=== PATIENT | female | born 1995 | race Caucasian/White ===

== ENCOUNTER 2019-02-14 15:13 | Emergency (ER) | payer OTHER, SELFPAY ==
[2019-02-14 16:07] LABS: #Eosinphils 0.1 thou/uL (0.0-0.7); #Lymphocytes 2.1 thou/uL (1.20-3.40); #Monocytes 0.5 thou/uL (0.11-0.59); #Neutrophils 7.5 thou/uL (1.40-6.50); %Basophils 0.3 % (0.0-1.0); %Lymphocytes 20.5 % (21.0-51.0); %Monocytes 4.9 % (0.0-10.0); %Neutrophils 73.4 % (42.0-75.0); Hemoglobin 12.1 g/dL (12.0-16.0); Mean Corpuscular HGB CONC 33.8 g/dL (32.0-36.0); Mean Corpuscular Hemoglobin 28.9 pg (27.0-31.0); Mean Corpuscular Volume 85.4 fL (78.0-98.0); Mean Platelet Volume 8.3 fL (7.4-10.4); Platelet Count 180 thou/uL (130-400); RBC Distribution Width 12.7 % (11.5-14.5); Red Blood Cell (RBC) Count 4.18 mill/uL (4.20-5.40); White Blood Cell (WBC) Count 10.2 thou/uL (4.8-10.8)
[2019-02-14 16:28] LABS: ALT (SGPT) 18 U/L (8-55); AST (SGOT) 14 U/L (5-34); Albumin 3.8 g/dL (3.5-5.0); Alkaline Phosphatase 60 U/L (40-150); Anion Gap 11 mmol/L (10-20); BUN (Urea Nitrogen) 11 mg/dL (7.0-18.7); Bilirubin, Total 0.4 mg/dL (0.2-1.2); Calc. Creatinine Clearance 0 mL/min (70-130); Calcium 8.7 mg/dL (7.8-10.44); Carbon Dioxide 24 mmol/L (22-29); Chloride 105 mmol/L (98-107); Estimated GFR-MDRD 85; Globulin 2.5 g/dL (2.4-3.5); Glucose 87 mg/dL (70-105); Magnesium 1.8 mg/dL (1.6-2.6); Potassium 3.7 mmol/L (3.5-5.1); Protein, Total 6.3 g/dL (6.0-8.3); Sodium 136 mmol/L (136-145)
[2019-02-14 16:29] LABS: Acetaminophen Less than 6.0 mcg/mL (10.0-30.0); Alcohol Less than 10 mg/dL (Less than 10); CK (CPK) 79 U/L (29-168); Salicylate Less than 8.0 mg/dL (15.0-30.0)
[2019-02-14] MEDS ORDERED: Sodium Chloride 0.9% 1,000 ML IV SCH (16:45)
[2019-02-14] MEDS ORDERED: levETIRAcetam 500 MG TAB PO SCH (16:45)
[2019-02-14 17:30] LABS: Bilirubin Negative (Negative); Blood, Urine Moderate (Negative); Clarity CLOUDY (Clear); Glucose, Urine (Dipstick) Negative (Negative); Leukocyte Large (Negative); Nitrite Negative (Negative); Protein, Urine (Dipstick) Negative (Neg-Trace)
[2019-02-14 17:33] LABS: Bacteria/HPF Rare-Few HPF (None Seen); Hyaline Casts/LPF 4-6 HYALINE CAST LPF (0-3 Hyaline); Pathc Cast-AUWi Flag 0.68 (0-2.49)
[2019-02-14 17:37] LABS: Pregnancy Test - Urine (BHCG) Negative (Negative)
[2019-02-14 17:38] LABS: Pregu Control Background? CLEAR/WHITE (CLR/WHITE); Pregu Control Bar Appear? YES (CONTROL BAR); Specific Gravity 1.021 (1.002-1.036)
[2019-02-14 17:44] LABS: Amphetamine Not Detected (NotDetected); Barbiturates Screen Not Detected (NotDetected); Benzodiazepine Screen Not Detected (NotDetected); Cocaine Metabolite Screen Not Detected (NotDetected); Medtox Control Line Valid? VALID (VALID); Medtox Reader # READER 1; Methadone Not Detected (NotDetected); Methamphetamine Not Detected (NotDetected); Opiate Screen Not Detected (NotDetected); Oxycodone Screen Not Detected (NotDetected); Phencyclidine (PCP) Not Detected (NotDetected); THC/Cannabinoid Screen Not Detected (NotDetected); Tricyclic Screen Not Detected (NotDetected)
[2019-02-14 17:52] LABS: RBC/HPF 0-3 HPF (0-3)
== END 2019-02-14 18:15 | disposition home or self-care (01) ==
LOC: ERS 15:13
DX: R56.9 Unspecified convulsions (principal); N39.0 Urinary tract infection, site not specified; E03.9 Hypothyroidism, unspecified; I10 Essential (primary) hypertension; F90.9 Attention-deficit hyperactivity disorder, unspecified type; F32.9 Major depressive disorder, single episode, unspecified; F17.210 Nicotine dependence, cigarettes, uncomplicated; E66.01 Morbid (severe) obesity due to excess calories; Z86.73 Personal history of transient ischemic attack (TIA), and cerebral infarction without residual deficits; Z79.899 Other long term (current) drug therapy
CPT/HCPCS: 36415; 80053; 80306; 80307; 81003; 81015; 81025; 82550; 83735; 85025; 96360

== ENCOUNTER 2020-12-06 17:19 | Emergency (ER) | payer MEDICAID, MEDICARE ==
[2020-12-06] MEDS ORDERED: levETIRAcetam 500 MG TAB PO SCH (18:00)
[2020-12-06] MEDS ORDERED: Insulin Regular 300 UNITS/3 ML VIAL ONE (18:07)
[2020-12-06 18:38] LABS: BHCG - Serum Negative (NEGATIVE)
[2020-12-06 18:39] LABS: Pregs Control Background? CLEAR/WHITE (CLR/WHITE); Pregs Control Bar Appear? YES (CONTROL BAR)
== END 2020-12-06 19:11 | disposition home or self-care (01) ==
LOC: ERS 17:19
DX: G40.909 Epilepsy, unspecified, not intractable, without status epilepticus (principal); E03.9 Hypothyroidism, unspecified; I10 Essential (primary) hypertension; F17.210 Nicotine dependence, cigarettes, uncomplicated; E11.9 Type 2 diabetes mellitus without complications; Z79.4 Long term (current) use of insulin
CPT/HCPCS: 36415; 36416; 80177; 84703; 99284; J1815

== ENCOUNTER 2025-06-18 12:01 | Emergency (ER) | payer MEDICAID, MEDICARE ==
[2025-06-18] MEDS ORDERED: Ketorolac Tromethamine 30 MG (1 mL) VIAL ONE (13:54)
[2025-06-18] MEDS ORDERED: diphenhydrAMINE 50 MG/ML VIAL ONE (13:54)
[2025-06-18] MEDS ORDERED: levETIRAcetam 500 MG (5 mL) VIAL ONE (13:55)
[2025-06-18] MEDS ORDERED: Prochlorperazine 10 MG/2 ML VIAL ONE (13:55)
[2025-06-18 14:25] LABS: BHCG - Serum Negative (NEGATIVE); Pregs Control Background? CLEAR/WHITE (CLR/WHITE); Pregs Control Bar Appear? YES (CONTROL BAR)
[2025-06-18 14:30] LABS: ALT (SGPT) 51 U/L (Less than 34); AST (SGOT) 46 U/L (11-34); Albumin 3.6 g/dL (3.1-4.5); Alkaline Phosphatase 59 U/L (40-110); Anion Gap 14 mmol/L (10-20); BUN (Urea Nitrogen) 8 mg/dL (7.0-18.7); Bilirubin, Total 0.3 mg/dL (0.3-1.2); Calc. Creatinine Clearance 0 mL/min (70-130); Calcium 8.6 mg/dL (7.8-10.44); Carbon Dioxide 19 mmol/L (22-29); Chloride 106 mmol/L (98-107); Globulin 2.8 g/dL (2.4-3.5); Glucose 252 mg/dL (70-105); Potassium 4.5 mmol/L (3.5-5.1); Sodium 134 mmol/L (136-145)
[2025-06-18 14:51] LABS: #Basophils 0.05 10x3/uL (0.0-0.2); #Eosinophils 0.21 10x3/uL (0.0-0.7); #Monocytes 0.41 10x3/uL (0.11-0.59); #Neutrophils 4.98 10x3/uL (1.40-6.50); %Basophils 0.6 % (0.0-1.0); %Eosinophils 2.4 % (0.0-10.0); %Lymphocytes 33.9 % (21.0-51.0); %Monocytes 4.7 % (0.0-10.0); %Neutrophils 57.1 % (42.0-75.0); Hematocrit 36.8 % (36.0-47.0); Hemoglobin 11.8 g/dL (12.0-16.0); Mean Corpuscular Hemoglobin 27.8 pg (27.0-31.0); Mean Corpuscular Volume 86.8 fL (78.0-98.0); Platelet Count 179 10x3/uL (130-400); Red Blood Cell (RBC) Count 4.24 mill/uL (4.20-5.40); White Blood Cell (WBC) Count 8.71 10x3/uL (4.8-10.8)
== END 2025-06-18 17:58 | disposition home or self-care (01) ==
LOC: ERS 12:01
DX: R56.9 Unspecified convulsions (principal); G43.909 Migraine, unspecified, not intractable, without status migrainosus; E66.01 Morbid (severe) obesity due to excess calories; I10 Essential (primary) hypertension; F90.9 Attention-deficit hyperactivity disorder, unspecified type; F17.210 Nicotine dependence, cigarettes, uncomplicated; Z86.73 Personal history of transient ischemic attack (TIA), and cerebral infarction without residual deficits
CPT/HCPCS: 71045; 80053; 84703; 85025; 94760; 96365; 96375; 99284; J0780; J1200; J1885; J1953; 36415

== ENCOUNTER 2025-07-03 14:54 | Emergency (ER) | payer MEDICARE ==
[2025-07-03] MEDS ORDERED: HYDROcodone/Acetaminophen 5/325 mg Tablet ONE (16:34)
== END 2025-07-03 16:50 | disposition home or self-care (01) ==
LOC: ERS 14:54
DX: M25.562 Pain in left knee (principal); I10 Essential (primary) hypertension; F17.210 Nicotine dependence, cigarettes, uncomplicated
CPT/HCPCS: 99283

== ENCOUNTER 2025-07-06 06:04 | Emergency (ER) | payer MEDICARE, SELFPAY ==
[2025-07-06 06:28] LABS: #Basophils 0.04 10x3/uL (0.0-0.2); #Eosinophils 0.17 10x3/uL (0.0-0.7); #Monocytes 0.46 10x3/uL (0.11-0.59); #Neutrophils 6.74 10x3/uL (1.40-6.50); %Basophils 0.4 % (0.0-1.0); %Eosinophils 1.7 % (0.0-10.0); %Lymphocytes 25.2 % (21.0-51.0); %Monocytes 4.6 % (0.0-10.0); %Neutrophils 67.6 % (42.0-75.0); Hematocrit 38.6 % (36.0-47.0); Hemoglobin 12.9 g/dL (12.0-16.0); Mean Corpuscular Hemoglobin 27.7 pg (27.0-31.0); Mean Corpuscular Volume 82.8 fL (78.0-98.0); Platelet Count 177 10x3/uL (130-400); Red Blood Cell (RBC) Count 4.66 mill/uL (4.20-5.40); White Blood Cell (WBC) Count 9.97 10x3/uL (4.8-10.8)
[2025-07-06 06:38] LABS: BHCG - Serum Negative (NEGATIVE); Pregs Control Background? CLEAR/WHITE (CLR/WHITE); Pregs Control Bar Appear? YES (CONTROL BAR)
[2025-07-06] MEDS ORDERED: Acetaminophen 500 MG TAB ONE (06:42)
[2025-07-06] MEDS ORDERED: Tranexamic Acid 1,000 MG/10 ML VIAL ONE (06:43)
[2025-07-06] MEDS ORDERED: Ondansetron PF 4 MG/2 ML Vial ONE ×2 (06:43→07:39)
[2025-07-06 06:45] LABS: ALT (SGPT) 40 U/L (Less than 34); AST (SGOT) 21 U/L (11-34); Albumin 3.9 g/dL (3.1-4.5); Alkaline Phosphatase 72 U/L (40-110); Anion Gap 12 mmol/L (10-20); BUN (Urea Nitrogen) 15 mg/dL (7.0-18.7); Bilirubin, Total 0.4 mg/dL (0.3-1.2); Calc. Creatinine Clearance 0 mL/min (70-130); Calcium 8.6 mg/dL (7.8-10.44); Carbon Dioxide 22 mmol/L (22-29); Chloride 104 mmol/L (98-107); Globulin 2.8 g/dL (2.4-3.5); Glucose 386 mg/dL (70-105); Lipase 57 U/L (8-78); Potassium 3.8 mmol/L (3.5-5.1); Sodium 134 mmol/L (136-145)
[2025-07-06 08:56] LABS: Bacteria/HPF None Seen HPF (None Seen); CAUTI Indications for Culture Pelvic or flank pain; Glucose, Urine (Dipstick) Greater than 1000 mg/dL (Negative); Leukocyte Negative Leu/uL (Negative); Protein, Urine (Dipstick) 20 mg/dL (Neg-Trace); RBC/HPF Greater than 50 HPF (0-3); Specific Gravity, Urine 1.046 (1.002-1.036); WBC/HPF None Seen HPF (0-3)
[2025-07-06 08:58] LABS: Urine Culture Reflex No No
[2025-07-06 09:59] LABS: Hematocrit 35.2 % (36.0-47.0); Hemoglobin 11.9 g/dL (12.0-16.0)
[2025-07-06] MEDS ORDERED: cefTRIAXone (ROCEPHIN) 500 MG VIAL ONE (10:25)
[2025-07-06] MEDS ORDERED: metroNIDAZOLE 500 MG TAB ONE (10:25)
[2025-07-06 13:11] LABS: Chlam.trachomatis by PCR,Urine Not Detected (NotDetected); GC N.gonorrhoeae PCR,UrineVOID Not Detected (NotDetected)
== END 2025-07-06 11:03 | disposition home or self-care (01) ==
LOC: ERS 06:04
DX: N93.9 Abnormal uterine and vaginal bleeding, unspecified (principal); I10 Essential (primary) hypertension; E11.9 Type 2 diabetes mellitus without complications; E66.01 Morbid (severe) obesity due to excess calories; F17.210 Nicotine dependence, cigarettes, uncomplicated; Z86.73 Personal history of transient ischemic attack (TIA), and cerebral infarction without residual deficits; Z68.41 Body mass index [BMI] 40.0-44.9, adult
CPT/HCPCS: 36416; 76856; 80053; 81001; 83690; 84703; 85025; 86850; 86900; 86901; 87480; 87491; 87510; 87591; 87660; 96365; 96367; 96375; 96376; J0696; J2270; J2405

== ENCOUNTER 2025-07-15 14:36 | Emergency (ER) | payer MEDICARE, SELFPAY ==
[2025-07-15 15:04] LABS: #Basophils 0.05 10x3/uL (0.0-0.2); #Eosinophils 0.16 10x3/uL (0.0-0.7); #Monocytes 0.52 10x3/uL (0.11-0.59); #Neutrophils 6.25 10x3/uL (1.40-6.50); %Basophils 0.5 % (0.0-1.0); %Eosinophils 1.6 % (0.0-10.0); %Lymphocytes 28.2 % (21.0-51.0); %Monocytes 5.3 % (0.0-10.0); %Neutrophils 63.8 % (42.0-75.0); Hematocrit 38.7 % (36.0-47.0); Hemoglobin 12.6 g/dL (12.0-16.0); Mean Corpuscular Hemoglobin 27.2 pg (27.0-31.0); Mean Corpuscular Volume 83.6 fL (78.0-98.0); Platelet Count 170 10x3/uL (130-400); Red Blood Cell (RBC) Count 4.63 mill/uL (4.20-5.40); White Blood Cell (WBC) Count 9.80 10x3/uL (4.8-10.8)
[2025-07-15 15:21] LABS: BHCG - Serum Negative (NEGATIVE); Pregs Control Background? CLEAR/WHITE (CLR/WHITE); Pregs Control Bar Appear? YES (CONTROL BAR)
[2025-07-15] MEDS ORDERED: levETIRAcetam 500 MG (5 mL) VIAL ONE (15:24)
[2025-07-15 15:32] LABS: ALT (SGPT) 47 U/L (Less than 34); AST (SGOT) 40 U/L (11-34); Albumin 3.8 g/dL (3.1-4.5); Alkaline Phosphatase 70 U/L (40-110); Anion Gap 14 mmol/L (10-20); BUN (Urea Nitrogen) 20 mg/dL (7.0-18.7); Bilirubin, Total 0.4 mg/dL (0.3-1.2); Calc. Creatinine Clearance 0 mL/min (70-130); Calcium 8.8 mg/dL (7.8-10.44); Carbon Dioxide 22 mmol/L (22-29); Chloride 101 mmol/L (98-107); Globulin 2.9 g/dL (2.4-3.5); Glucose 373 mg/dL (70-105); Potassium 4.1 mmol/L (3.5-5.1); Sodium 133 mmol/L (136-145)
[2025-07-15] MEDS ORDERED: Fluconazole 100 MG TAB ONE (16:55)
[2025-07-15 22:36] LABS: Chlamydia by PCR, Vaginal Swab Not Detected (NotDetected); GC by PCR, Vaginal Swab Not Detected (NotDetected)
== END 2025-07-15 17:10 | disposition home or self-care (01) ==
LOC: ERS 14:36
DX: R56.9 Unspecified convulsions (principal); L30.4 Erythema intertrigo; R79.89 Other specified abnormal findings of blood chemistry; E11.9 Type 2 diabetes mellitus without complications; B37.31 Acute candidiasis of vulva and vagina; I10 Essential (primary) hypertension; F17.210 Nicotine dependence, cigarettes, uncomplicated; F17.290 Nicotine dependence, other tobacco product, uncomplicated; Z79.84 Long term (current) use of oral hypoglycemic drugs; Z86.73 Personal history of transient ischemic attack (TIA), and cerebral infarction without residual deficits; Z72.89 Other problems related to lifestyle
CPT/HCPCS: 80053; 84703; 85025; 87480; 87491; 87510; 87591; 87660; 93005; 96365; 99284; J1953

== ENCOUNTER 2025-07-18 05:54 | Emergency (ER) | payer MEDICARE, SELFPAY ==
[2025-07-18] MEDS ORDERED: Acetaminophen 325 MG TAB ONE (06:28)
[2025-07-18 06:35] LABS: #Basophils 0.03 10x3/uL (0.0-0.2); #Eosinophils 0.07 10x3/uL (0.0-0.7); #Monocytes 0.47 10x3/uL (0.11-0.59); #Neutrophils 4.43 10x3/uL (1.40-6.50); %Basophils 0.4 % (0.0-1.0); %Eosinophils 1.0 % (0.0-10.0); %Lymphocytes 24.0 % (21.0-51.0); %Monocytes 7.0 % (0.0-10.0); %Neutrophils 66.6 % (42.0-75.0); Hematocrit 39.0 % (36.0-47.0); Hemoglobin 13.0 g/dL (12.0-16.0); Mean Corpuscular Hemoglobin 27.2 pg (27.0-31.0); Mean Corpuscular Volume 81.6 fL (78.0-98.0); Platelet Count 161 10x3/uL (130-400); Red Blood Cell (RBC) Count 4.78 mill/uL (4.20-5.40); White Blood Cell (WBC) Count 6.67 10x3/uL (4.8-10.8)
[2025-07-18] MEDS ORDERED: levETIRAcetam 500 MG (5 mL) VIAL ONE (06:37)
[2025-07-18 06:56] LABS: ALT (SGPT) 58 U/L (Less than 34); AST (SGOT) 42 U/L (11-34); Albumin 3.8 g/dL (3.1-4.5); Alkaline Phosphatase 63 U/L (40-110); Anion Gap 13 mmol/L (10-20); BUN (Urea Nitrogen) 13 mg/dL (7.0-18.7); Bilirubin, Total 0.4 mg/dL (0.3-1.2); Calc. Creatinine Clearance 0 mL/min (70-130); Calcium 9.1 mg/dL (7.8-10.44); Carbon Dioxide 21 mmol/L (22-29); Chloride 103 mmol/L (98-107); Globulin 2.9 g/dL (2.4-3.5); Glucose 317 mg/dL (70-105); Potassium 3.9 mmol/L (3.5-5.1); Sodium 133 mmol/L (136-145)
[2025-07-18 08:21] LABS: BHCG - Serum Negative (NEGATIVE); Pregs Control Background? CLEAR/WHITE (CLR/WHITE); Pregs Control Bar Appear? YES (CONTROL BAR)
[2025-07-18 09:41] LABS: CAUTI Indications for Culture Dysuria,urgency,freq; Glucose, Urine (Dipstick) Greater than 1000 mg/dL (Negative); Leukocyte Negative Leu/uL (Negative); Protein, Urine (Dipstick) 20 mg/dL (Neg-Trace); RBC/HPF 0-3 HPF (0-3); WBC/HPF 0-3 HPF (0-3)
[2025-07-18 09:50] LABS: Bacteria/HPF 1+ HPF (None Seen)
[2025-07-18 09:51] LABS: Urine Culture Reflex No No
[2025-07-18] MEDS ORDERED: Vancomycin 1 GM/200 ML (FROZEN) BAG ONE (11:23)
[2025-07-18] MEDS ORDERED: Iopamidol-370 76% 500 ML MDV (1 ML CHARGE) ONE (13:23)
== END 2025-07-18 13:37 | disposition home or self-care (01) ==
LOC: ERS 05:54
DX: J10.00 Influenza due to other identified influenza virus with unspecified type of pneumonia (principal); J18.0 Bronchopneumonia, unspecified organism; I10 Essential (primary) hypertension; E11.9 Type 2 diabetes mellitus without complications; F17.210 Nicotine dependence, cigarettes, uncomplicated; F17.290 Nicotine dependence, other tobacco product, uncomplicated; Z86.73 Personal history of transient ischemic attack (TIA), and cerebral infarction without residual deficits; Z79.84 Long term (current) use of oral hypoglycemic drugs
CPT/HCPCS: 36416; 71045; 71275; 80053; 81001; 83605; 84484; 84703; 85025; 85379; 87040; 87149; 87428; 93005; 96365; 96367; 96372; 96375; J1815; J1953; J2060; J3373

== ENCOUNTER 2025-07-29 18:18 | Emergency (ER) | payer SELFPAY ==
[2025-07-29 19:04] LABS: #Basophils 0.04 10x3/uL (0.0-0.2); #Eosinophils 0.18 10x3/uL (0.0-0.7); #Monocytes 0.73 10x3/uL (0.11-0.59); #Neutrophils 5.21 10x3/uL (1.40-6.50); %Basophils 0.4 % (0.0-1.0); %Eosinophils 1.8 % (0.0-10.0); %Lymphocytes 35.8 % (21.0-51.0); %Monocytes 7.5 % (0.0-10.0); %Neutrophils 53.5 % (42.0-75.0); Hematocrit 41.6 % (36.0-47.0); Hemoglobin 13.9 g/dL (12.0-16.0); Mean Corpuscular Hemoglobin 27.0 pg (27.0-31.0); Mean Corpuscular Volume 80.8 fL (78.0-98.0); Platelet Count 250 10x3/uL (130-400); Red Blood Cell (RBC) Count 5.15 mill/uL (4.20-5.40); White Blood Cell (WBC) Count 9.75 10x3/uL (4.8-10.8)
[2025-07-29 19:14] LABS: BHCG - Serum Negative (NEGATIVE); Pregs Control Background? CLEAR/WHITE (CLR/WHITE); Pregs Control Bar Appear? YES (CONTROL BAR)
[2025-07-29 19:25] LABS: ALT (SGPT) 75 U/L (Less than 34); AST (SGOT) 71 U/L (11-34); Albumin 4.0 g/dL (3.1-4.5); Alkaline Phosphatase 69 U/L (40-110); Anion Gap 7 mmol/L (10-20); BUN (Urea Nitrogen) 15 mg/dL (7.0-18.7); Bilirubin, Total 0.8 mg/dL (0.3-1.2); Calc. Creatinine Clearance 0 mL/min (70-130); Calcium 9.6 mg/dL (7.8-10.44); Carbon Dioxide 24 mmol/L (22-29); Chloride 104 mmol/L (98-107); Globulin 2.9 g/dL (2.4-3.5); Glucose 342 mg/dL (70-105); Lipase 56 U/L (8-78); Magnesium 1.5 mg/dL (1.6-2.6); Potassium 4.3 mmol/L (3.5-5.1); Sodium 131 mmol/L (136-145)
[2025-07-29] MEDS ORDERED: Metoclopramide HCl 10 MG (2 mL) VIAL ONE (19:42)
[2025-07-29] MEDS ORDERED: diphenhydrAMINE 50 MG/ML VIAL ONE (19:42)
[2025-07-29] MEDS ORDERED: Magnesium 2 GM/50 ML BAG (IN WATER) ONE (19:43)
[2025-07-29 19:54] LABS: Actual Bicarbonate (HCO3v) 23.7 mEq/L (22-28); Base Excess -0.8 mEq/L (-2.0 to +3.0); Calcium, Ionized (venous) 1.14 mmol/L (1.16-1.32); Chloride (VBG) 100 mmol/L (98-106); Hematocrit-VBG 44 % (36.0-47.0); Hemoglobin (Hb) 14.9 g/dL (11.7-15.5); Potassium (VBG) 4.13 mmol/L (3.70-5.30); Sodium 135 mmol/L (133-146)
== END 2025-07-29 21:36 | disposition home or self-care (01) ==
LOC: ERS 18:18
DX: E11.65 Type 2 diabetes mellitus with hyperglycemia (principal); E66.01 Morbid (severe) obesity due to excess calories; E03.9 Hypothyroidism, unspecified; I10 Essential (primary) hypertension; F17.200 Nicotine dependence, unspecified, uncomplicated; Z79.84 Long term (current) use of oral hypoglycemic drugs; Z86.73 Personal history of transient ischemic attack (TIA), and cerebral infarction without residual deficits; Z79.899 Other long term (current) drug therapy; Z79.4 Long term (current) use of insulin; Z79.51 Long term (current) use of inhaled steroids
CPT/HCPCS: 36415; 36416; 80053; 82010; 82805; 83690; 83735; 84100; 84703; 85025; 94760; 96361; 96374; 96375; J1200; J1815; J2765; J3475